=== PATIENT | male | born 1980 | race Caucasian/White ===

== ENCOUNTER 2018-11-09 18:16 | Emergency (ER) | payer BC ==
[2018-11-09] MEDS ORDERED: Magnesium Hydroxide 400 MG/5 ML Susp 30 ML Cup PO ONE (20:07)
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
--- NOTE | 2018-11-11 09:42 | CR ---
Abdomen: Supine and upright views of the abdomen were obtained. Comparison: No prior abdominal imaging. No free air is identified. Visualized lung bases are clear. Small calcifications are seen within the pelvis which most likely represent phleboliths. Bony structures appear within normal limits. Bowel gas pattern is normal. Impression: 1. No acute abnormality is appreciated on two-view abdominal x-ray. Diagnostic code #2
== END 2018-11-09 20:16 | disposition home or self-care (01) ==
LOC: JD.ED 18:16
DX: R10.84 Generalized abdominal pain (principal); Z87.891 Personal history of nicotine dependence; J45.909 Unspecified asthma, uncomplicated
CPT/HCPCS: 36415; 74019; 80053; 83690; 85025; 86140; 99284; A9270

== ENCOUNTER 2021-04-25 14:26 | Emergency (ER) | payer BC ==
[2021-04-25] MEDS ORDERED: Sodium Chloride 0.9% 10 ML Syringe FLUSH PRN (14:55)
== END 2021-04-25 16:40 | disposition home or self-care (01) ==
LOC: JD.ED 14:26
DX: R07.89 Other chest pain (principal); I10 Essential (primary) hypertension
CPT/HCPCS: 36415; 71045; 71045-26; 80053; 84484; 85025; 85379; 93005; 93010; 99285; 99285-25